=== PATIENT | male | born 1980 | race African-American/Black ===

== ENCOUNTER 2021-06-30 19:28 | Emergency (ER) | payer MEDICAID ==
[~2021-06-30] VITALS: Ht 182.9 cm; Wt 83.0 kg
[~2021-06-30 19:28] MED LIST: ALBU5SOL6; FLUO10CA25; QUET25TA
[2021-06-30 20:44] LABS: BASOPHILS % 0.5 % (0.0-2.0); EOSINOPHILS % 1.5 % (0.0-5.0); HEMATOCRIT. 32.3 % (42.0-52.0); HEMOGLOBIN. 11.1 g/dL (14.0-18.0); LYMPHOCYTES % 27.5 % (20.0-50.0); MEAN CORPUSCULAR HEMOGLOBIN 26.2 pg (28.0-32.0); MEAN CORPUSCULAR VOLUME 76.2 fL (80.0-94.0); MEAN PLATELET VOLUME 7.9 fl (7.4-10.4); MONOCYTES % 11.9 % (2.0-8.0); NEUTROPHILS % 58.6 % (40.0-76.0); PLATELET 249 x1000/uL (130-400); RED BLOOD CELL COUNT 4.24 mill/uL (4.7-6.1); RED CELL DISTRIBUTION WIDTH 17.9 % (11.6-14.6)
[2021-06-30 20:48] LABS: CHLORIDE 104 mEq/L (98-107)
[2021-06-30 20:53] LABS: ETHANOL BLOOD < 10 mg/dL
[2021-06-30] MEDS ORDERED: POTASSIUM CHLORIDE 20MEQ TABLET SR PO ONE (21:15)
[2021-07-01 00:06] VITALS: BP 169/117
== END 2021-07-01 00:07 | disposition home or self-care (01) ==
LOC: ER 19:28
DX: R53.1 Weakness (principal); R42 Dizziness and giddiness; I10 Essential (primary) hypertension; J45.909 Unspecified asthma, uncomplicated; F99 Mental disorder, not otherwise specified; Z86.73 Personal history of transient ischemic attack (TIA), and cerebral infarction without residual deficits; F15.10 Other stimulant abuse, uncomplicated; Z87.891 Personal history of nicotine dependence
CPT/HCPCS: 36415; 80053; 80307; 80320; 80329; 85025; 93005; 99291; G0480

== ENCOUNTER 2024-09-30 21:42 | Emergency (ER) | payer MEDICAID, OTHER ==
[~2024-09-30] VITALS: Ht 185.4 cm; Wt 90.0 kg
[2024-09-30 21:50] VITALS: O2SAT 99
[2024-09-30] MEDS ORDERED: CEFEPIME 1GM IN DEXT 5% 50ML IV ONE (22:00)
[2024-09-30] MEDS: SODIUM CHLORIDE 0.9% (SEPSIS BOLUS) IV ONE (22:22)
[2024-09-30] MEDS: MORPHINE SULFATE 4 MG/ML INJ (FOR IV/IM USE) IV ONE (22:34)
[2024-09-30] MEDS: VANCOMYCIN 1G PREMIX 200 ML IV ONE (22:34)
[2024-09-30 22:38] LABS: BASOPHILS % 0.8 % (0.0-2.0); EOSINOPHILS % 3.4 % (0.0-5.0); HEMATOCRIT. 24.6 % (42.0-52.0); LYMPHOCYTES % 27.1 % (20.0-50.0); MEAN CORPUSCULAR HEMOGLOBIN 27.4 pg (28.0-32.0); MEAN CORPUSCULAR HGB CONC 32.4 g/dL (31.0-37.0); MEAN CORPUSCULAR VOLUME 84.5 fL (80.0-94.0); MEAN PLATELET VOLUME 8.9 fl (7.4-10.4); MONOCYTES % 12.6 % (2.0-8.0); NEUTROPHILS % 56.1 % (40.0-76.0); PLATELET 390 x1000/uL (130-400); RED BLOOD CELL COUNT 2.91 mill/uL (4.7-6.1); RED CELL DISTRIBUTION WIDTH 17.3 % (11.6-14.6)
[2024-09-30 22:45] LABS: CHLORIDE 107 mEq/L (98-107); POTASSIUM 4.2 mEq/L (3.5-5.1); PROTHROMBIN TIME 10.9 sec (9.6-11.0); SODIUM 142 mEq/L (136-145)
[2024-09-30 22:46] LABS: CALCIUM 9.2 mg/dL (8.7-10.4); CARBON DIOXIDE 23 mEq/L (21-32)
[2024-09-30 22:51] LABS: CREATININE 1.7 mg/dL (0.6-1.3); GLUCOSE 104 mg/dL (70-105); UREA NITROGEN BLOOD 17 mg/dL (9-23)
[2024-09-30 22:52] LABS: TROPONIN I HIGH SENSITIVITY 11 ng/L (3.0-53)
[2024-09-30 22:53] LABS: ALANINE AMINOTRANSFERASE 36 IU/L (10-49); ALBUMIN 3.6 g/dL (3.2-4.8); ASPARTATE AMINOTRANSFERASE 35 IU/L (<34); BILIRUBIN TOTAL < 0.2 mg/dL (0.1-1.0); PROTEIN TOTAL 6.9 g/dL (6.0-8.3)
[2024-09-30 22:58] LABS: BILIRUBIN DIRECT < 0.1 mg/dL (<=3.0)
[2024-09-30] MEDS: CEFEPIME 1GM PREMIX 50ML IV NR (23:27)
[2024-10-01 00:30] VITALS: BP 148/91; PULSE 108; RESP 20; TEMP 37.28076; O2SAT 98
== END 2024-10-01 03:09 | disposition left against medical advice (07) ==
LOC: ER 21:42 → EDBEDREQ 22:06 → EDBEDREQTM 22:32 → EDBEDREQ 22:32 → ER 10-01 03:09
DX: A41.9 Sepsis, unspecified organism (principal); J18.9 Pneumonia, unspecified organism; R65.21 Severe sepsis with septic shock; I10 Essential (primary) hypertension; J45.909 Unspecified asthma, uncomplicated; Z86.73 Personal history of transient ischemic attack (TIA), and cerebral infarction without residual deficits
CPT/HCPCS: 80076; 80048; 83880; 83605; 85025; 85610; 87040; 84484; 36415; 84145; 71045; 93005; 96368; 96365; 96366; 96375; 99291; J0692; J3370; J2270; J7030; Z7610